=== PATIENT | male | born 1970 | race Caucasian/White ===

== ENCOUNTER 2024-08-03 11:01 | Outpatient (CLI) | payer BC, SELFPAY ==
--- NOTE | 2024-08-03 11:11 | XR_ITS ---
WS: [id number] XR knee LT 3V* [id number] REASON FOR EXAM: M25.562 - Pain in left knee FINDINGS: No fracture or focal bone lesion. Minimal narrowing of the medial knee joint space with minimal subchondral sclerosis and osteophytosis . Lateral knee joint space is intact, preserved. Patellofemoral joint space is intact and well preserved. XR/XR knee LT 3V* [id number] IMPRESSION: Minimal osteoarthritis of the left knee.
== END 2024-08-03 11:02 | disposition home or self-care (01) ==
PROVIDERS: Family Provider Nurse Practitioner Family; PCP Nurse Practitioner Family; Visit Provider Nurse Practitioner Family
DX: M17.12 Unilateral primary osteoarthritis, left knee (principal); M25.762 Osteophyte, left knee
CPT/HCPCS: 73562

== ENCOUNTER → 2024-08-12 08:15 | Outpatient (BNVA) | payer BC, SELFPAY | PROVIDERS: Family Provider Nurse Practitioner Family; PCP Nurse Practitioner Family; Visit Provider Nurse Practitioner | DX: M25.562 Pain in left knee (principal); M23.52 Chronic instability of knee, left knee; M17.12 Unilateral primary osteoarthritis, left knee; Z68.43 Body mass index [BMI] 50.0-59.9, adult | CPT/HCPCS: 73560; 73565 ==